=== PATIENT | male | born 1965 | race African-American/Black ===

== ENCOUNTER → 2021-05-13 | Outpatient (CLI) | payer BC ==
[~2021-05-13] MED LIST: PREDNISONE50 MG PO
== END ==
LOC: RAD 05-07 11:44
PROVIDERS: ATTEND Nurse Practitioner
DX: M51.16 Intervertebral disc disorders with radiculopathy, lumbar region (principal); M43.16 Spondylolisthesis, lumbar region

== ENCOUNTER → 2021-06-11 | Outpatient (CLI) | payer BC | LOC: MRI 07:52 | PROVIDERS: ATTEND Nurse Practitioner | DX: M51.16 Intervertebral disc disorders with radiculopathy, lumbar region (principal); M48.061 Spinal stenosis, lumbar region without neurogenic claudication; G95.19 Other vascular myelopathies; M47.27 Other spondylosis with radiculopathy, lumbosacral region ==

== ENCOUNTER → 2021-06-25 | Outpatient (CLI) | payer BC | LOC: MRI 09:01 | DX: M51.26 Other intervertebral disc displacement, lumbar region (principal); M48.061 Spinal stenosis, lumbar region without neurogenic claudication; M89.38 Hypertrophy of bone, other site ==